=== PATIENT | female | born 1950 | race Caucasian/White ===

== ENCOUNTER 2025-07-01 05:23 | Observation (INO) ==
--- NOTE | 2025-06-11 13:54 | PAT Medication Instructions ---
Medication Instructions Date of Service June 11, 2025 Home Medications Medication Instructions Recorded vibegron 75 mg tablet (Gemtesa) 75 mg PO DAILY #90 tabs 05/11/25 cyanocobalamin (vitamin B-12) 1,000 mcg capsule 1,000 mcg PO DAILY baclofen 10 mg tablet 10 mg PO BID PRN Muscle Spasm vibegron 75 mg tablet (Gemtesa) 75 mg PO DAILY acetaminophen 500 mg tablet 500 - 1,000 mg PO Q6H PRN Pain amoxicillin 500 mg capsule 2,000 mg PO UD TAKE PRIOR TO DENTAL PROC ibuprofen 400 mg tablet 400 - 800 mg PO Q6H PRN Pain Continue as directed amoxicillin 500 mg capsule 2,000 mg PO UD TAKE PRIOR TO DENTAL PROC ASK your surgeon for instructions ibuprofen 400 mg tablet 400 - 800 mg PO Q6H PRN Pain DO NOT take the morning of surgery cyanocobalamin (vitamin B-12) 1,000 mcg capsule 1,000 mcg PO DAILY vibegron 75 mg tablet (Gemtesa) 75 mg PO DAILY Take morning of surgery With a small sip of water, OTHERWISE NOTHING TO EAT OR DRINK AFTER MIDNIGHT: baclofen 10 mg tablet 10 mg PO BID PRN Muscle Spasm (if needed) acetaminophen 500 mg tablet 500 - 1,000 mg PO Q6H PRN Pain (if needed) Take evening before surgery baclofen 10 mg tablet 10 mg PO BID PRN Muscle Spasm (if needed) acetaminophen 500 mg tablet 500 - 1,000 mg PO Q6H PRN Pain (if needed) Other Notes If you have any questions please call us at [phone] or [phone] or [phone] or [phone]
--- NOTE | 2025-06-19 11:27 | Anesthesiology Consultation ---
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 Desats in post-op during 2014 right TKA was attributed to untreated persistent sleep apnea despite patient reported weight loss responding to CPAP post-op. Patient has not had updated sleep study/is not on treatment for sleep apnea. Case discussed in detail with Dr. Fang who advised nothing further is needed from anesthesia standpoint. Surgeon's office made aware. Patient made aware to keep upcoming PCP clearance and [facility] EMR summary of concerns with previous surgeries. Denies h/o either genetic anesthesia conditions. - awaiting surgeon ordered 06/22 medical clearance, Dr. Reji Connelly. Optimization form to be faxed to PCP with PAT testing. If cleared by PCP, is acceptable to proceed. [facility] records 08/03/2011 left EV-Anesthesia pre-op note indicates plan for spinal, sedation but details are only available for intubation: Kuo 2, ETT 7.5. 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...has been on steroids for the last 2 years starting at 20 mg prednisone daily and recently getting stepped down..recently on 5 mg which she has been on for the last 3 weeks...episodes of hypotension through the surgery dipping down to 70/33 and was given 300 mcg phenyleprine and 20 mg ephedrine and 3 liters of fluid...recovered from the surgery well and her pressures started to increase after pressors...started on fluids postop and BP has been increasing...baseline BP was 100/65...Started on medium stress dose IV hydrocortisone- getting 50 mg IV one time tonight- getting 25 mg Q8H for three doses tomorrow- will go back on home dose 5 mg after stress dose is done. Slowed down plasmalyte to 50 mg with patient getting almost 4 liters since being here- hypotension thought to be from HPA axis suppression and will watch with IV stress dose steroids...Holding NSAID - Toradol with low BP's..." 12/08/2014 right TKA-Kuo 2, ETT 7.5 + PNB. * discharge summary: "...right total knee arthroplasty...patient was awoken, extubated, and taken to the PACU where post anesthesia care was carried out by the PACU staff...Had desaturations while in PACU, decided to admit to SCU floor...placed on CPAP, desaturations improved. Medicine consulted and OP sleep studies were ordered...discharged to home when medically stable..." * internal medicine consult 12/10/14: "...noted desaturation to mid-80's while sleeping requiring frequent awakenings and 40% venturi mask...history of KARSTEN for which she was on a nasal CPAP for years but discontinued this without medical advice 3 years ago as she lost 60 lbs and was no longer snoring so felt she no longer needed it...reports tolerating her BiPAP (10/5 w/ 40% FiO2) last evening...despite weight loss, patient will need to resume prior CPAP. Opioid medications could have contributed to nocturnal hypoxia as well but patient denies feeling confused upon awakening and was alert per microstrategy bi developer making this less likely...no documentation of hypercarbia and with normal HCO3 on BMP, doubt chronic CO2 retention..." - anesthesia history/concerns as above in history: I had a detailed discussion with patient today listening to her/family history with anesthesia complications and empathized with her concerns for upcoming surgery. I advised I will see if [facility] records are available and then discuss case with an anesthesiologist. She also plans to contact her siblings who were present during her mother's surgery 4 years ago for any additional details. No known personal or family history of pseudocholinesterase deficiency or malignant hyperthermia. She expressed comfort with plan, denied additional questions or concerns. - Outpatient joint assessment: Patient is currently scheduled for inpatient pathway. If re-evaluated and patient/surgeon requests outpatient pathway, patient is not advised candidate for outpatient joint program. Chart Review Chart Review: Patient seen in Pre Admission Testing Teaching & Discussion Pre-Anesthesia Teaching/Discussion Notes: Instructed NPO after midnight before surgery, except medications with 15 cc of water. Medication instructions provided according to the PAT guidelines. History Surgery Operation Date: 07/15/25 08:50 Proposed Procedures p Right Total Hip Arthroplasty with Dual Mobility - Dale Guerra MD Height/Weight Height: 4 ft 11 in Weight: 96.7 kg Allergies Allergy/AdvReac Type Severity Reaction Status Date / Time gabapentin Allergy Mild Wheezing Verified 05/11/25 13:00 milnacipran AdvReac Severe suicidal Verified 06/19/25 12:40 thoughts/odd dreams per [facility] EMR Medications Home Medications Medication Instructions Recorded Confirmed Last Taken cyanocobalamin (vitamin B-12) 1,000 mcg PO DAILY 08/22/23 06/11/25 Unknown 1,000 mcg capsule baclofen 10 mg tablet 10 mg PO BID PRN Muscle Spasm 09/18/24 06/11/25 Unknown vibegron 75 mg tablet (Gemtesa) 75 mg PO DAILY #90 tabs 05/11/25 06/11/25 Unknown acetaminophen 500 mg tablet 500 - 1,000 mg PO Q6H PRN Pain 06/11/25 06/11/25 Unknown amoxicillin 500 mg capsule 2,000 mg PO UD TAKE PRIOR TO 06/11/25 06/11/25 Unknown DENTAL PROC ibuprofen 400 mg tablet 400 - 800 mg PO Q6H PRN Pain 06/11/25 06/11/25 Unknown Past Medical History Medical History (Updated 06/19/25 @ 15:16 by Tari Henry PA-C) Acid reflux Recently increased, thinks due to increased ibuprofen usage-improvement with reduction Fibromyalgia Hx of sleep apnea no treatment, lost to f/u with sleep medicine-persistent significant desats despite weight loss per 2014 [facility] records Hypothyroidism monitored by [facility] PCP, WNL 9 months ago (found in [facility] EMR after visit) Knee pain, left Cortisone injection every 3 months Last injection early 05/2025 Neuropathy Feet Spinal stenosis Patient denies h/o stroke, seizures, heart attack, heart failure, DM, HTN, blood clots/DVTs or blood transfusions. Exercise / Class Metabolic Activity II 4-5 Yardwork/Stairs/Walk up hill (ambulates with cane, denies chest discomfort or shortness of breath walking up one flight of stairs) Past Surgical History Surgical History (Updated 06/19/25 @ 13:01 by Tari Henry PA-C) History of anesthesia reaction Severe hypotension and awareness during left hip replacement-patient states heard people yelling to give her medication and concern re very low BP; difficulty waking with right knee replacement History of left hip replacement History of oral surgery Dental implants History of right knee joint replacement (~2015) Hx of section Hx of colonoscopy Past Anesthesia History Other ("severe hypotension and difficulty waking" right TKA (2014) and left hip replacement (2010) both at [facility]; mother very slow to wake-states was told 4 years ago after surgery [place] state that it was very serious but then woke abruptly-denies known h/o pseudocholinesterase deficiency) History of PONV No Hx of Motion Sickness and History of PONV Social History Smoking Status: Never smoker Do You Dip or Chew Tobacco: No Hx Alcohol Use: No Hx Substance Use: No substance use type: does not use Review of Systems Patient denies chest pain, shortness of breath, dyspnea on exertion, fever, chills, cough, wheezing, or palpitations. Physical Exam Vital Signs Vitals BP 148/75 P 74 TEMP 98.4 SP02 95% on RA RESP 18 Physical Patient resting comfortably in chair in no acute distress, alert and oriented, responding appropriately throughout visit Full cervical extension range of motion without pain TMD 3.5 finger breadths Mallampati Score 3 Dentition: several implants and crowns, denies chipped or loose teeth, caps, or bridges Lungs: normal respiratory effort. Good air movement, clear throughout to auscultation, no adventitious breath sounds Cardiac: regular rate and rhythm, no murmurs noted Carotid arteries: negative bruit bilat Lab Results Anesthesia Preop Results Results Anesthesia Widget: WBC 5.29 K/ul (4.8-10.8) 06/19/25 Hgb 12.4 g/dl (12.0-16.0) 06/19/25 Hct 38.3 % (37.0-47.0) 06/19/25 Plt 243 K/uL (130-400) 06/19/25 Na 143 mmol/L (136-145) 06/19/25 K 4.2 mmol/L (3.5-5.1) 06/19/25 Cl 109 mmol/L (98-107) H 06/19/25 CO2 28 mmol/L (21-32) 06/19/25 BUN 15 mg/dl (6-23) 06/19/25 Creat 0.91 mg/dl (0.6-1.2) 06/19/25 Glucose Level 96 mg/dl (70-99(Fasting)) 06/19/25 PT 10.9 Seconds (9.0-12.0) 06/19/25 PTT 24 Seconds (21-31) 06/19/25 INR 1.0 (0.9-1.1) 06/19/25 Urine Color Yellow 06/19/25 Urine Appearance Clear (Clear) 06/19/25 Urine pH 5.0 (4.5-7.5) 06/19/25 Urine Specific Coello 1.023 (1.000-1.030) 06/19/25 Urine Protein Negative (Negative) 06/19/25 Urine Glucose (UA) Negative (Negative) 06/19/25 Urine Ketones Negative (Negative) 06/19/25 Urine Blood 2+ (Negative) H 06/19/25 Urine Nitrite Negative (Negative) 06/19/25 Urine Bilirubin Negative (Negative) 06/19/25 Urine Urobilinogen Negative (Negative) 06/19/25 Urine Leukocyte Esterase Trace (Negative) H 06/19/25 Urine WBC (Auto) 0-5 /hpf (0-5) 06/19/25 Urine RBC (Auto) 6-10 /hpf (0-2) H 06/19/25 Urine Hyaline Casts (Auto) 0-2 /lpf (0-2) 06/19/25 Urine Epithelial Cells (Auto) 0-2 /hpf (0-2) 06/19/25 Urine Bacteria (Auto) None Seen (None Seen) 06/19/25 Blood Type A Positive 06/19/25 Antibody Screen NEGATIVE 06/19/25 Testing Electrocardiogram Date: 06/19/25 NSR, rate 67 bpm Low voltage QRS Cannot rule out anterior infarct, age undetermined Chest X-Ray Date: 06/19/25 There is mild cardiomegaly without pulmonary vascular congestion. No consolidation or pleural effusion. IMPRESSION: No acute findings.
--- NOTE | 2025-07-01 05:31 | History & Physical Bridge Note ---
Date of Service July 01, 2025 History & Physical Bridge Note I have examined the patient, reviewed the History & Physical and in the interval since the performance of the History & Physical I have noted the following changes of clinical significance:consent and site verified.revisited Leg length inequality, instability,infection and DVT-PE risks. no changes noted
[2025-07-01] MEDS: LR 500ML BOLUS, THEN 15ML/HR IV SCH (05:59)
[2025-07-01] MEDS: LR 60ML/HR IV SCH (06:15)
[2025-07-01] MEDS ORDERED: BUPIVACAINE 0.5 % 5 MG/1 ML PF 10ML VIAL ONE (06:36)
[2025-07-01] MEDS ORDERED: MIDAZOLAM HCL 1 MG/ML 2ML VIAL ONE (06:38)
[2025-07-01] MEDS ORDERED: LIDOCAINE 2% 2 ML VIAL/AMP(20MG/ML) INFIL ONE (06:38)
[2025-07-01] MEDS ORDERED: PROPOFOL IV EMULSION 10 MG/ML 20 ML VIAL IV ONE (06:38)
[2025-07-01] MEDS: TRANEXAMIC ACID 1,000 MG **IV Pre-op IV SCH (06:49)
[2025-07-01] MEDS ORDERED: ONDANSETRON INJ 2 MG/ML 2 ML VIAL IV PRN ×2 (06:58→11:48)
[2025-07-01] MEDS ORDERED: ATROPINE SULFATE 0.1 MG/ML 10ML SYR IV PRN (06:58)
[2025-07-01] MEDS ORDERED: KETAMINE HCL 10MG/ML SYR ONE (07:14)
[2025-07-01] MEDS: ORTHO JOINT ANESTHETIC ONE (07:36)
[2025-07-01] MEDS: ROPIV 0.5% 246mg, Ketorolac 30mg, EPINEPHrine 0.5mg in NSS INFIL SCH (07:36)
[2025-07-01] MEDS ORDERED: PHENYLEPHRINE 100MCG/ML 5ML SYR ONE (07:52)
[2025-07-01] MEDS ORDERED: GLYCOPYRROLATE 0.2 MG/ML VIAL ONE (07:57)
--- NOTE | 2025-07-01 09:08 | Post Operative Brief Note ---
Immediate Post Op Note Date of Surgery July 01, 2025 Pre & Post Diagnosis Operation Date: 07/01/25 07:00 <No data on this case meets the specified criteria> Osteoarthritis right hip pre and postop diagnosis same I identified the patient and participated in the time-out.: Yes Procedure Operation Date: 07/01/25 07:00 <No data on this case meets the specified criteria> Noncemented right total replacement Surgeon Dale Guerra MD Insurance Agents Supervisor [facility] no resident or fellow available modifier for high BMI 22 Estimated Blood Loss 200 Findings Consistent with Post-Op Diagnosis Severe osteoarthritis marked deformity high BMI Fluids 1200 cc Complications None
--- NOTE | 2025-07-01 09:12 | Operative Report ---
Post Operative Report Pre & Post Diagnosis Operation Date: 07/01/25 07:00 <No data on this case meets the specified criteria> Osteoarthritis right hip with deformity and significantly high BMI modifier 22 I identified the patient and participated in the time-out.: Yes Procedure Operation Date: 07/01/25 07:00 <No data on this case meets the specified criteria> Noncemented total hip replacement Surgeon Dale Guerra MD Inspector [employer] no resident or fellow available modifier for high BMI 22 Estimated Blood Loss 200 Findings Consistent with Post-Op Diagnosis Severe disease high BMI extensive exposure Fluids 1200 cc Specimens Bone pathology Drains None Complications None Indications Severe pain failed conservative management Description of Procedure After patient was up identified site verified consent provide antibiotics confirmed as been given she was placed in left lateral cubitus position with appropriate padding and protection. She is very large. Appropriate exposure was utilized for her size and high BMI. This required extensive retraction multiple people. Full-thickness flaps raised IT band in size gluteus radha fascia incised. Care taken to place large Charnley retractor. The nerve was palpated but not exposed. It was then flipped internally rotated in extension. Short external rotators were released. The capsule was then teed. The hip was then dislocated the femoral neck resected. Anterior capsule was then released. Appropriate exposure of the osteotomy carried out large labral tear was removed large cystic area removed. The cup was then reamed up to a 48 and 48 cup impacted in the position and secured with a 6.5 x 25 screw with excellent purchase. 48 x 38 liner was then placed for dual mobility. Femur was then flexed internally rotated proximal femur. With the box repairer and lateralizing rasp canal finder 0 broaching up to a size 3 reduction was carried out with a +5 neck length 28 bipolar head hip was very stable leg lengths were excellent. The hip was then dislocated trial elements removed from the femur and the permanent stem and head seated hip reduced it was stable in all planes leg lengths were excellent. The wound was then closed in layers using #2 Vicryl for the short external rotators and remnants of the capsule #2 Vicryl for the fascia and deep fat and then 2-0 Vicryl for multiple layer of superficial fat closure. The skin was then closed with cami and retention sutures. The wound was then appropriate dressed the patient transferred recovery in satisfactory addition having tolerated the procedure well. Summary of implants d-MPH a SYS system acetabular shell 48 cup 25 x 6.5 screw 48 x 38 liner 3 standard stem Actis ACT I-S 38 x 28 bipolar head 28+5 ceramic head. EBL 200 cc crystalloid 1200 cc bone pathology pending x-ray pending. I attest to the content of the Intraoperative Record and any orders documented therein. Any exceptions are noted below.
--- NOTE | 2025-07-01 09:13 | Orthopedic Progress Note ---
Date of Service July 01, 2025 Orthopedic Progress Note Underwent noncemented right total replacement. Tolerated well. Denies chest pain shortness of breath fever chills nausea vomiting headache. Vital signs are stable. Blood loss 200 cc or less crystalloid 1200 cc. Spinal still in place wound dressing clean dry and intact. X-ray pending. Family friend notified.
--- NOTE | 2025-07-01 09:14 | Discharge Summary ---
Date of Service July 02, 2025 Admission HPI Per Admitting Provider Osteoarthritis right hip Principal Diagnosis Status post right total replacement noncemented high BMI Discharge Data Allergies Allergy/AdvReac Type Severity Reaction Status Date / Time gabapentin Allergy Mild Wheezing Verified 07/01/25 05:51 milnacipran AdvReac Severe suicidal Verified 07/01/25 05:51 thoughts/odd dreams per [facility] EMR Vaccinations None Consultations None Procedures Performed Operation Date: 07/01/25 07:00 <No data on this case meets the specified criteria> Noncemented right total preplacement Ordered Studies Bone pathology x-rays Hospital Course (1) Status post right hip replacement: Total Time Total Time Spent Total Time Spent (In Minutes): 10 Discharge Plan Discharge Items Reason For Visit: Right Hip Osteoarthritis Discharge Diagnosis: Status post right hip replacement Follow-up/Referrals: Reji Connelly MD [Primary Care Provider] - Add Attending Provider Instructions: DIET: * Resume previous diet. MEDICATIONS: * Please take your prescriptions as instructed at your pre-op appointment and/or see medication discharge instructions listed above. * If concerns develop, call your physician's office at . SPECIAL CARE INSTRUCTIONS: * Ice/Elevate as instructed. * Keep dressing clean, dry, intact. * Your surgical extremity may be discolored due to prepping agents used on the skin. A bluish-green tint is a normal variant and should not cause alarm. Call your doctor at [phone] if: * Temperature above 101 degrees * Pain not relieved by pain medicine ordered * There is increased drainage or redness from any incision * You have any unanswered questions, problems or concerns. FOLLOW UP VISIT: * If not already scheduled, please call the office at to schedule a follow-up appointment. Stand-Alone Forms: My [facility] [employer] Medications and DC Order Prescriptions: No Action cyanocobalamin (vitamin B-12) 1,000 mcg capsule 1,000 mcg PO DAILY baclofen 10 mg tablet 10 mg PO BID PRN (Reason: Muscle Spasm) amoxicillin 500 mg Capsule 2,000 mg PO UD Patient Comments: TAKE PRIOR TO DENTAL PROCEDURES. acetaminophen 500 mg Tablet 500 - 1,000 mg PO Q6H PRN (Reason: Pain) ibuprofen 400 mg Tablet 400 - 800 mg PO Q6H PRN (Reason: Pain) Admission Data Admit Date/Time: 07/01/25 09:26 Attending Provider: Dale Guerra Admit Provider: Dale Guerra Primary Care Provider: Reji Connelly Other Providers: [facility]; [facility]
--- NOTE | 2025-07-01 09:19 | Operative Report ---
Post Operative Report Pre & Post Diagnosis Operation Date: 07/01/25 07:00 Pre-Op Diagnosis: Right Hip Degenerative Joint Disease Post-Op Diagnosis: Right Hip Degenerative Joint Disease I identified the patient and participated in the time-out.: Yes Procedure Operation Date: 07/01/25 07:00 Actual Procedures p Right Total Hip Arthroplasty, Uncemented(Right) - Dale Guerra MD Surgeon JACKIE Guerra MD Parts Cleaner [facility] no resident or fellow available modifier for high BMI 22 Estimated Blood Loss 200 Findings Consistent with Post-Op Diagnosis see operative report Specimens see operative report Drains none Complications none Disposition Accompanied Patient To Recovery: Yes Indications This 74 year old female presented to the office complaints of persisting right hip pain. She had tried conservative care measures without improvement. She elected to proceed with surgical invention after being educated about potential risks and outcomes. Preoperative imaging was obtained. Description of Procedure The patient was administered a spinal anesthetic and then taken to the operating room where she was given sedation. She was prepped and draped in the usual sterile fashion. Please see Dr. Guerra's operative report for specifics of the procedure. I was present for the entire case from initial patient posit ioning through final wound closure. Assistance was provided in tissue retraction, hemostasis, trial implant placement, final implant placement, and final wound closure. The patient was taken to the recovery room in satisfactory condition. I attest to the content of the Intraoperative Record and any orders documented therein. Any exceptions are noted below.
--- NOTE | 2025-07-01 09:34 | XRay Report ---
XR hip RT 1V CLINICAL HISTORY: Status post total right hip arthroplasty. COMPARISON: Pelvis and right hip radiographs May 25, 2025. FINDINGS: Alignment of the total right hip arthroplasty is anatomic. There is no periprosthetic frac ture or unexpected radiopaque foreign body. Skin cami are present. Left hip arthroplasty is incide ntally noted. IMPRESSION: Expected findings following total right hip arthroplasty. ACT 112: Negative or not required by law. Electronically signed by: Douglas Cole M.D. 07/01/2025 9:33 AM
[2025-07-01] MEDS ORDERED: ALUMINUM/MAGNESIUM SUSP 30 ML UDC PO PRN (11:48)
[2025-07-01] MEDS ORDERED: MAGNESIUM HYDROXIDE SUSP 30 ML UDC PO PRN (11:48)
[2025-07-01] MEDS ORDERED: NALOXONE HCL 0.4 MG/1 ML VIAL/CARP IV PRN (11:48)
[2025-07-01] MEDS ORDERED: VANCOMYCIN CONSULT ACTIVE PRN (11:48)
[2025-07-01] MEDS ORDERED: METOCLOPRAMIDE HCL INJ 5 MG/ML 2 ML VIAL IV PRN (11:48)
[2025-07-01] MEDS ORDERED: HYDROmorphone INJ 0.5 MG/0.5 ML SYR IV PRN (11:48)
[2025-07-01] MEDS ORDERED: diphenhydrAMINE 50 MG/ML VIAL IV PRN (11:48)
[2025-07-01] MEDS ORDERED: BACLOFEN 10 MG TAB PO PRN (11:48)
[2025-07-01] MEDS: SODIUM CHLORIDE 0.9% 1,000 ML IV SCH (12:29)
[2025-07-01] MEDS: KETOROLAC TROMETHAMINE 15 MG/ML VIAL IV SCH (12:33)
--- NOTE | 2025-07-01 12:49 | Anesthesiology Progress Note ---
Date of Service July 01, 2025 Anesthesia Post Procedure Vital Signs Vital Signs: Temp Pulse Pulse Pulse Resp BP Pulse Ox 07/01/25 12:15 36.6 C 72 14 119/75 94 07/01/25 11:45 36.7 C 67 14 118/74 97 07/01/25 11:20 70 18 114/72 98 07/01/25 11:05 63 16 128/82 99 07/01/25 10:50 36.4 C L 72 18 118/65 97 07/01/25 10:40 63 16 126/67 98 07/01/25 10:30 66 18 118/63 99 07/01/25 10:20 61 16 121/61 99 07/01/25 10:10 36.4 C L 68 18 125/71 98 07/01/25 10:00 72 16 124/85 97 07/01/25 09:50 65 18 129/69 95 07/01/25 09:40 72 18 119/80 100 07/01/25 09:30 70 16 138/69 98 07/01/25 09:20 73 12 139/76 100 07/01/25 09:12 36.2 C L 82 16 131/74 99 07/01/25 05:44 36.8 C 83 18 162/77 H 97 O2 Del Method O2 Flow Rate 07/01/25 12:15 Room Air 07/01/25 11:45 Room Air 07/01/25 11:20 Nasal Cannula 2 07/01/25 11:05 Nasal Cannula 2 07/01/25 10:50 Nasal Cannula 2 07/01/25 10:40 Nasal Cannula 2 07/01/25 10:30 Nasal Cannula 2 07/01/25 10:20 Nasal Cannula 2 07/01/25 10:10 Nasal Cannula 2 07/01/25 10:00 Room Air 07/01/25 09:50 Room Air 07/01/25 09:40 Oxymask 4 07/01/25 09:30 Oxymask 4 07/01/25 09:20 Oxymask 4 07/01/25 09:12 Oxymask 6 07/01/25 05:44 Room Air Pain Intensity Right Hip: Pain Intensity: 10 Back: Pain Intensity: 10 Transfer of Care Handoff Completed per policy Notes Mental Status: alert / awake / arousable and participated in evaluation Patient Amnestic to Procedure: Yes Nausea / Vomiting: adequately controlled Pain: adequately controlled Airway Patency, RR, SpO2: stable & adequate BP & HR: stable & adequate Hydration State: stable & adequate Neuraxial Anesthesia: was administered and sensory block is resolving Anesthetic Complications: no major complications apparent and Pt Satisfied with anesthetic care
[2025-07-01] MEDS: VANCOMYCIN HCL 1,500 MG in SODIUM CHLORIDE 0.9% 500 ML IV ONE (12:51)
[2025-07-01] MEDS: ACETAMINOPHEN 500 MG TAB PO SCH (13:03)
--- NOTE | 2025-07-01 13:46 | Orthopedic Progress Note ---
Date of Service July 01, 2025 Assessment & Plan Admission and Anticipated Discharge Date Admission Date: July 01, 2025 Orthopedic Progress Note Postop check. Patient sitting up in bed doing fine. Denies any chest pain shortness of breath fever chills nausea vomiting or headache. Vital signs are stable she is afebrile. Neurovascular check femoral sciatic nerve is intact. Wound dressing clean dry and intact. Assessment status post right total replacement doing well postop x-rays look excellent. Neurovascular status is back to baseline. She can get out of bed she can walk around should be weightbearing as tolerated. She is eating and drinking well will discontinue IV fluid maintenance just use of her medications. Prepare for discharge tomorrow if she continues to do well overnight.
[2025-07-01] MEDS: ASCORBIC ACID 500 MG TAB PO SCH (16:19)
[2025-07-01] MEDS: FERROUS GLUCONATE 324 MG TAB PO SCH (16:19)
[2025-07-01] MEDS: SENNA 8.6 MG TAB PO SCH (20:52)
[2025-07-01] MEDS: DOCUSATE SODIUM 100 MG CAP PO SCH (20:53)
[2025-07-02 07:59] LABS: Hematocrit (blood only) 30.1 % (37.0-47.0); Hemoglobin 10.1 g/dL (12.0-16.0); Immature Granulocytes # (auto) 0.07 K/uL (0.01-0.20); Immature Granulocytes % (auto) 0.5 %; Mean Corpuscular Hemoglobin 30.6 pg (25.0-34.0); Mean Corpuscular Volume 91.2 fL (80.0-100.0); Platelet Count 176 K/uL (130-400); RDW Standard Deviation 41.9 fL (36.4-46.3); Red Blood Count 3.30 M/uL (4.20-5.40); White Blood Count 13.22 K/ul (4.8-10.8)
[2025-07-02 08:12] VITALS: PULSE 70; RESP 16; TEMP 97.9; O2SAT 95
[2025-07-02] MEDS: APIXABAN 2.5 MG TAB PO SCH (08:28)
[2025-07-02] MEDS: dexAMETHasone 10 MG in SYRINGE 0 ML IV SCH (08:28)
[2025-07-02] MEDS: MULTIVITAMIN TAB PO SCH (08:28)
[2025-07-02 08:32] LABS: Anion Gap 6.0 (3-11); Calcium 8.9 mg/dl (8.6-10.3); Carbon Dioxide 28.0 mmol/L (21-32); Chloride 108.0 mmol/L (98-107); Potassium 4.3 mmol/L (3.5-5.1); Sodium 142.0 mmol/L (136-145)
[2025-07-02 08:37] LABS: Blood Urea Nitrogen 24.0 mg/dl (6-23); Creatinine Clr Calc Pharmacy 44.5 ml/min; Glucose 142.0 mg/dl (70-99(Fasting))
--- NOTE | 2025-07-02 09:27 | Orthopedic Progress Note ---
Date of Service July 02, 2025 Assessment & Plan (1) Status post right hip replacement: Plan: The patient's dressings were changed today by me. Prevena wound VAC was applied. Suction was maintained. Function of the unit was explained to the patient. Written discharge instructions were provided. Prescriptions for Percocet, prednisone 20 mg, and Eliquis 2.5 mg were sent to the patient's pharmacy. Use the walker when standing and ambulating. Use the w edge pillow when sleeping continue with ice application for edema control. Follow-up with me in the office in 1 week for removal of wound VAC. Follow-up with me in the office for 2 weeks for staple removal. Call the office with any other concerns. Admission and Anticipated Discharge Date Admission Date: July 01, 2025 Subjective This 74-year-old female was seen today in her room. She is 1 day status post right total hip arthroplasty. She denies any chest pain, shortness of breath, nausea, vomiting, or abdominal pain. No headaches. Has been out of bed to the bathroom with assistance. [facility]. No additional complaints. Review of Systems Review of Systems: Unchanged from yesterday. Physical Exam Physical Exam: General: Well-developed, well-nourished, early female, in no acute distress. Standing at bedside. Alert and oriented. Conversive. Skin: Warm and dry with good turgor. No rashes. She has a postsurgical dressing in place on the right hip. Upon removal, there is a mild amount of blood on the inner dressings. No current oozing. No ecchymosis or edema yet. Musculoskeletal: The patient is ambulatory in her room. Intact hip and quad function. Intact plantarflexion and dorsiflexion of the ankle and toes. Neurologic: Gross sensation is intact across the lower extremities by soft touch. Peripheral pulses are 2+. Results & Data Vital Signs (Past 12 Hours) Vital Signs Temp Pulse Resp BP BP Pulse Ox O2 Del Method 07/02/25 07:14 36.6 C 70 16 106/69 95 Room Air 07/02/25 03:15 36.9 C 67 18 111/68 94 Room Air 07/01/25 23:05 36.7 C 72 18 122/78 95 Room Air Laboratory Results CBC obtained today shows a white count of 13.22. H&H of 10.1 and 30.1. Platelets 276,000. PRP obtained this morning shows sodium 142, potassium 4.3, chloride 108, CO2 28. BUN of 24 with creatinine 1.15. Glucose this morning is 142.
[2025-07-02 11:06] VITALS: BP 122/78
== END 2025-07-02 11:40 ==
LOC: 3W 05:23 → ASU 05:23